=== PATIENT | female | born 1945 | race Caucasian/White ===

== ENCOUNTER → 2016-09-23 | Outpatient (CLI) | payer OTHER ==
[2016-09-23 15:48] LABS: BUN/CREATININE RATIO 17.69 (6-20); CALCIUM 9.9 mg/dL (8.7-10.7); CHOL/HDL RATIO 1.9 RATIO (0-4.0); LDL CHOLESTEROL,CALCULATED 44.2 mg/dL; SERUM ALBUMIN 3.3 g/dL (3.5-4.8)
== END ==
LOC: LAB 11:42
PROVIDERS: ATTEND Physician Assistant Medical
DX: R94.5 Abnormal results of liver function studies (principal); E78.5 Hyperlipidemia, unspecified
CPT/HCPCS: 80053; 80061

== ENCOUNTER → 2016-12-16 | Outpatient (CLI) | payer OTHER ==
[2016-12-16 18:17] LABS: BLOOD UREA NITROGEN 14 mg/dL (7-22); CALCIUM 9.1 mg/dL (8.7-10.7); EST GLOMERULAR FILTRATION > 60 (>60 ml/min/1.73m(2)); SERUM ALBUMIN 3.7 g/dL (3.5-4.8)
== END ==
LOC: LAB 10:09
PROVIDERS: ATTEND Physician Assistant Medical
DX: R79.89 Other specified abnormal findings of blood chemistry (principal)
CPT/HCPCS: 80053